=== PATIENT | female | born 1945 | race Caucasian/White ===

== ENCOUNTER 2017-11-26 12:36 | Inpatient (IN) | payer MEDICARE, MEDICAID ==
[~2017-11-26] VITALS: Ht 152.4 cm; Wt 76.2 kg
[2017-11-26] MEDS ORDERED: ATOR20TA65 MT (13:07)
[2017-11-26] MEDS ORDERED: GABA-529 PO (13:07)
[2017-11-26 15:48] LABS: BASOPHILS % 0.6 % (0.0-2.0); EOSINOPHILS % 1.3 % (0.0-5.0); HEMATOCRIT. 46.4 % (36.0-48.0); HEMOGLOBIN. 15.5 g/dL (12.0-16.0); LYMPHOCYTES % 19.2 % (20.0-50.0); MEAN CORPUSCULAR HEMOGLOBIN 31.3 pg (28.0-32.0); MEAN CORPUSCULAR VOLUME 93.8 fL (81.0-99.0); MEAN PLATELET VOLUME 9.4 fl (7.4-10.4); MONOCYTES % 7.3 % (2.0-8.0); NEUTROPHILS % 71.6 % (40.0-76.0); PLATELET 285 x1000/uL (130-400); RED BLOOD CELL COUNT 4.95 mill/uL (4.2-5.4); RED CELL DISTRIBUTION WIDTH 13.9 % (11.6-14.6)
[2017-11-26 15:50] LABS: CHLORIDE 104 mEq/L (98-107)
[2017-11-26 16:03] LABS: AMMONIA 37 uMol/L (<32)
[2017-11-26 16:49] LABS: CLARITY URINE CLEAR (CLEAR); COLOR URINE YELLOW (YELLOW); KETONES URINE 1+ (NEGATIVE); LEUKOCYTE ESTERASE URINE NEGATIVE (NEGATIVE); NITRITE URINE NEGATIVE (NEGATIVE); OCCULT BLOOD URINE TRACE (NEGATIVE); PH URINE 5.5 (4.5-8.0); PROTEIN URINE NEGATIVE (NEGATIVE); SPECIFIC GRAVITY URINE 1.027 (1.005-1.030); UROBILINOGEN URINE 0.2 E.U./dL (0.2-1.0)
[2017-11-26] MEDS ORDERED: ACETAMINOPHEN 325MG TABLET PO ONE (17:15)
[2017-11-26] MEDS ORDERED: AMLODIPINE 5MG TABLET PO ONE (17:15)
[2017-11-26] MEDS ORDERED: AMLODIPINE 10MG TABLET PO ONE (20:15)
[2017-11-26] MEDS ORDERED: SODIUM CHLORIDE 0.9% 500 ML IV ONE (20:15)
[2017-11-26] MEDS ORDERED: MORPHINE SULFATE 4 MG/ML CPJ (NOT FOR IM USE) IV ONE (20:15)
[2017-11-26] MEDS ORDERED: LACTULOSE 20G/30ML UDC PO ONE (20:15)
[2017-11-26 20:38] LABS: HEPATITIS B SURFACE ANTIGEN NEGATIVE
[2017-11-26 21:06] LABS: HEPATITIS B CORE AB IGM NEGATIVE
[2017-11-26 21:08] LABS: HEPATITIS A AB IGM NEGATIVE (NEGATIVE)
[2017-11-26] MEDS ORDERED: MAGNESIUM/ALUMINUM HYDROXIDE/SIMETHICONE 30ML UDC PO PRN (23:00)
[2017-11-26] MEDS ORDERED: DIPHENHYDRAMINE 50MG/ML VIAL IV PRN (23:00)
[2017-11-26] MEDS ORDERED: VANCOMYCIN 1 G PREMIX 200 ML IV SCH (23:00)
[2017-11-27] VITALS (11 sets, daily range): BP systolic 116–161; BP diastolic 76–97
[2017-11-27] MEDS: DEXT 5%/0.45% NACL 1000ML 1,000 ML IV SCH ×3 (02:44→21:24)
[2017-11-27] MEDS ORDERED: ONDANSETRON HCL 4MG/2ML INJ IV PRN ×2 (02:44→04:15)
[2017-11-27] MEDS ORDERED: LEVOFLOXACIN 500MG PREMIX 100 ML IV SCH ×2 (04:00→04:15)
[2017-11-27] MEDS ORDERED: MAGNESIUM/ALUMINUM HYDROXIDE/SIMETHICONE 30ML UDC PO PRN (04:15)
[2017-11-27] MEDS ORDERED: VANCOMYCIN 1 G PREMIX 200 ML IV SCH (04:15)
[2017-11-27] MEDS ORDERED: ACETAMINOPHEN 325MG TABLET PO PRN (04:15)
[2017-11-27] MEDS ORDERED: DIPHENHYDRAMINE 50MG/ML VIAL IV PRN (04:15)
[2017-11-27] MEDS ORDERED: VANCOMYCIN 1500MG in DEXTROSE 5% WATER 250ML IV SCH (05:00)
[2017-11-27] MEDS ORDERED: MVI, ADULT NO.1 10 ML, FOLIC ACID 1 MG, THIAMINE HCL 100 MG in SODIUM CHLORIDE 0.9% 1,0... IV SCH ×4 (06:00)
[2017-11-27 07:13] LABS: BASOPHILS % 0.7 % (0.0-2.0); EOSINOPHILS % 1.8 % (0.0-5.0); HEMATOCRIT. 42.2 % (36.0-48.0); HEMOGLOBIN. 14.6 g/dL (12.0-16.0); LYMPHOCYTES % 14.6 % (20.0-50.0); MEAN CORPUSCULAR HEMOGLOBIN 32.4 pg (28.0-32.0); MEAN CORPUSCULAR VOLUME 93.9 fL (81.0-99.0); MEAN PLATELET VOLUME 8.7 fl (7.4-10.4); MONOCYTES % 6.8 % (2.0-8.0); NEUTROPHILS % 76.1 % (40.0-76.0); PLATELET 235 x1000/uL (130-400); RED CELL DISTRIBUTION WIDTH 13.7 % (11.6-14.6)
[2017-11-27 07:50] LABS: CHLORIDE 104 mEq/L (98-107)
[2017-11-27 09:06] LABS: *AMPHETAMINES SCREEN URINE NEGATIVE (NEGATIVE); *BARBITURATES SCREEN URINE NEGATIVE (NEGATIVE)
[2017-11-27 09:07] LABS: *BENZODIAZEPINES SCREEN URINE NEGATIVE (NEGATIVE); *COCAINE SCREEN URINE NEGATIVE (NEGATIVE); CANNABINOID URINE SCREEN NEGATIVE (NEGATIVE); OPIATES URINE SCREEN NEGATIVE (NEGATIVE); PHENCYCLIDINE URINE SCREEN NEGATIVE (NEGATIVE)
[2017-11-27 09:08] LABS: METHADONE URINE SCREEN NEGATIVE (NEGATIVE)
[2017-11-27] MEDS: ACETAMINOPHEN 325MG TABLET PO PRN ×2 (12:42→23:36)
[2017-11-27] MEDS: CLONIDINE 0.1MG TABLET PO PRN (16:23)
[2017-11-28] VITALS (12 sets, daily range): BP systolic 118–170; BP diastolic 59–107
[2017-11-28] MEDS: ACETAMINOPHEN 325MG TABLET PO PRN ×3 (06:18→18:55)
[2017-11-28 08:17] LABS: VITAMIN B12 SERUM > 2000.0 pg/mL (211-911)
[2017-11-28] MEDS: DEXT 5%/0.45% NACL 1000ML 1,000 ML IV SCH ×2 (08:23→18:51)
[2017-11-28] MEDS ORDERED: [UNRECOGNIZED DRUG - OTHER] MT (10:55)
[2017-11-28] MEDS ORDERED: [UNRECOGNIZED DRUG - OTHER] MT (10:55)
[2017-11-28] MEDS ORDERED: [UNRECOGNIZED DRUG - OTHER] MT (10:55)
[2017-11-28] MEDS ORDERED: [UNRECOGNIZED DRUG - OTHER] MT (10:56)
[2017-11-28] MEDS ORDERED: [UNRECOGNIZED DRUG - OTHER] IM (10:56)
[2017-11-28] MEDS ORDERED: LOSA50TA20 MT (10:56)
[2017-11-28] MEDS ORDERED: NIFE30TA83 MT (10:56)
[2017-11-28] MEDS ORDERED: LIDOCAINE HCL 1% 10 MG/ML 10ML VIAL ONE (14:43)
[2017-11-28] MEDS ORDERED: SODIUM BICARBONATE 4% (2.4MEQ) 5ML VIAL IV ONE (14:43)
[2017-11-28] MEDS: CLONIDINE 0.1MG TABLET PO PRN (17:23)
[2017-11-29] VITALS (8 sets, daily range): BP systolic 123–159; BP diastolic 72–106
[2017-11-29] MEDS: DEXT 5%/0.45% NACL 1000ML 1,000 ML IV SCH ×2 (04:21→14:46)
[2017-11-29] MEDS: ACETAMINOPHEN 325MG TABLET PO PRN (04:21)
[2017-11-29 06:52] LABS: PROTHROMBIN TIME 10.5 sec (9.1-11.1)
[2017-11-29 07:26] LABS: BASOPHILS % 0.6 % (0.0-2.0); EOSINOPHILS % 1.9 % (0.0-5.0); HEMATOCRIT. 42.3 % (36.0-48.0); HEMOGLOBIN. 14.7 g/dL (12.0-16.0); MEAN CORPUSCULAR HEMOGLOBIN 32.1 pg (28.0-32.0); MEAN CORPUSCULAR VOLUME 92.1 fL (81.0-99.0); MEAN PLATELET VOLUME 9.2 fl (7.4-10.4); MONOCYTES % 7.9 % (2.0-8.0); NEUTROPHILS % 70.6 % (40.0-76.0); PLATELET 220 x1000/uL (130-400); RED BLOOD CELL COUNT 4.59 mill/uL (4.2-5.4); RED CELL DISTRIBUTION WIDTH 13.4 % (11.6-14.6)
[2017-11-29 09:19] LABS: CHLORIDE 96 mEq/L (98-107)
[2017-11-29] MEDS ORDERED: SODIUM BICARBONATE 4% (2.4MEQ) 5ML VIAL IV ONE (09:33)
[2017-11-29] MEDS ORDERED: LIDOCAINE HCL 1% 10 MG/ML 10ML VIAL ONE (09:33)
[2017-11-29 12:56] LABS: GLUCOSE CSF 62 mg/dL (41-75)
[2017-11-29 17:06] LABS: ANTI-NUCLEAR ANTIBODIES DIRECT Negative (Negative)
[2017-11-30 09:06] LABS: IMMUNOGLOBULIN G 1092 mg/dL (700-1600)
[2017-11-30 15:06] LABS: ANTI-MYELOPEROXIDASE AB < 9.0 U/mL (0.0-9.0); ANTI-PROTEINASE 3 ABS < 3.5 U/mL (0.0-3.5)
[2017-12-02 15:10] LABS: ATYPICAL P-ANCA <1:20 titer (Neg:<1:20); CYTOPLASMIC C-ANCA <1:20 titer (Neg:<1:20); PERINUCLEAR P-ANCA <1:20 titer (Neg:<1:20)
== END 2017-11-29 16:30 | disposition short-term general hospital (02) | DRG 871 ==
LOC: ER 12:36 → 5EST 20:00 → EDBEDREQ 20:05 → EDBEDREQSVC 20:05 → EDBEDREQTM 20:05 → ENRESERV 11-27 00:01 → 5EST 11-27 02:32
PROVIDERS: ADMIT Internal Medicine; ATTEND Internal Medicine
PROC: 4A00X4Z Measurement of Central Nervous Electrical Activity, External Approach (ICD-10-PCS; principal; 2017-11-28)
PROC: 009U3ZX Drainage of Spinal Canal, Percutaneous Approach, Diagnostic (ICD-10-PCS; 2017-11-29)
PROC: B01B1ZZ Fluoroscopy of Spinal Cord using Low Osmolar Contrast (ICD-10-PCS; 2017-11-29)
DX: A41.9 Sepsis, unspecified organism (principal); G93.41 Metabolic encephalopathy; G82.50 Quadriplegia, unspecified; G61.0 Guillain-Barre syndrome; I11.9 Hypertensive heart disease without heart failure; I77.819 Aortic ectasia, unspecified site; E78.00 Pure hypercholesterolemia, unspecified; E11.9 Type 2 diabetes mellitus without complications; E78.5 Hyperlipidemia, unspecified; Z79.899 Other long term (current) drug therapy; Z91.81 History of falling
CPT/HCPCS: 36415; 51702; 62270; 70450; 70551; 71045; 72040; 72070; 72100; 72141; 72146; 72148; 77003; 80048; 80053; 80305; 81003; 82140; 82550; 82607; 82784; 82945; 83036; 83520; 83880; 84157; 84443; 84484; 85025; 85610; 85651; 86038; 86256; 86705; 86709; 86803; 87040; 87070; 87086; 87205; 87340; 87899; 89050; 93005; 93923; 93970; 96361; 96374; 99285; J1956; J2270; J3370; J3411; J3490; J7030; J7040; J7060; A4315